=== PATIENT | female | born 1955 | race Asian ===

== ENCOUNTER 2016-10-17 10:25 | Emergency (ER) | payer OTHER ==
[~2016-10-17] VITALS: Ht 160 cm; Wt 60.0 kg
[2016-10-17 10:29] VITALS: Ht 160 cm; Wt 60.0 kg
--- NOTE | 2016-10-17 13:15 | ERD ---
ER Documentation Chief Complaint Date/Time DATE: 10/17/16 TIME: 13:07 Chief Complaint BUMPED HEAD ON DOOR HANDLE WANTS TO GET CHECKED DENIES N/V KO BLURRY VISION HPI This is a 60-year-old female presenting to the emergency department after head injury that occurred yesterday. Patient states she was walking fast and hit her head on the edge of her bathroom door. Patient states she developed a small bump to her left forehead that has improved since yesterday. Patient now has bruising to left eye. No headache. Patient has some pain to left forehead at area of ecchymosis. No nausea or vomiting. No visual changes. No blurry vision or loss of vision. No loss of consciousness. No change in mood or behavior. Denies weakness or fatigue. No increased lethargy. No obvious deformity. No hematoma. No slurred speech or facial droop. ROS All systems reviewed and are negative except as per history of present illness. Medications Home Meds Reported Medications [None] No Conflict Check 01/09/10 Allergies Allergies: Coded Allergies: No Known Allergies (Verified Allergy, Mild, 07/14/10) PMhx/Soc History of Surgery: No Anesthesia Reaction: No Hx Neurological Disorder: No Hx Respiratory Disorders: No Hx Cardiac Disorders: No Hx Psychiatric Problems: No Hx Miscellaneous Medical Probl: No Hx Alcohol Use: No Hx Substance Use: No Hx Tobacco Use: No Smoking Status: Never smoker Physical Exam Vitals Vital Signs Date Time Temp Pulse Resp B/P Pulse Ox O2 Delivery O2 Flow Rate FiO2 10/17/16 10:29 98.1 74 18 151/79 96 Physical Exam Const: No acute distress, alert, smiling during exam Head: Atraumatic Eyes: Normal Conjunctiva, PERRL, ecchymosis to left upper lid with mild swelling. ENT: Normal External Ears, Nose and Mouth. Neck: Full range of motion..~ No meningismus. Resp: Clear to auscultation bilaterally Cardio: Regular rate and rhythm, no murmurs Abd: Soft, non tender, non distended. Normal bowel sounds Skin: No petechiae or rashes Back: No midline or flank tenderness Ext: No cyanosis, or edema Neur: Awake and alert cranial nerves intact 2 through 12. Strength equal bilaterally to upper extremities.. Walking with steady gait. Psych: Normal Mood and Affect Procedures/MDM ED COURSE: The patient was stable throughout ED course. I kept the patient and/or family informed of laboratory and diagnostic imaging results throughout the ED course. MDM: This is a 60-year-old female presenting to emergency department for head injury that occurred yesterday. No loss of consciousness, change in vision, loss of vision or blurry vision. No change in mood or behavior. No obvious skull fracture or deformity. Patient has left eye ecchymosis to left upper lid with mild lid swelling. No neurologic deficits. No weakness or fatigue. No increased lethargy. Walking with steady gait. No slurred speech or facial droop. Patient appears calm and comfortable and stable for discharge home. Low suspicion for intracranial hemorrhage, subdural hematoma, CVA , retinal detachment or other emergent conditions. Patient is appropriate for outpatient management and encouraged to follow-up with primary care provider in the next 24-48 hours. Encouraged close monitoring of neurologic status and to return to ED for any weakness , slurred speech, facial droop ,change in vision, mood or behavior, level of consciousness or any new or worsening symptoms. Patient and patient's spouse verbalize understanding. All questions answered at discharge. Departure Diagnosis: Primary Impression: Head injury Encounter type: initial encounter Qualified Code: S09.90XA - Head injury, initial encounter Condition: Stable Patient Instructions: HEAD INJURY with Wake-Up (Adult) Referrals: [facility] YOU HAVE RECEIVED A MEDICAL SCREENING EXAM AND THE RESULTS INDICATE THAT YOU DO NOT HAVE A CONDITION THAT REQUIRES URGENT TREATMENT IN THE EMERGENCY DEPARTMENT. FURTHER EVALUATION AND TREATMENT OF YOUR CONDITION CAN WAIT UNTIL YOU ARE SEEN IN YOUR DOCTORS OFFICE WITHIN THE NEXT 1-2 DAYS. IT IS YOUR RESPONSIBILITY TO MAKE AN APPOINTMENT FOR FOLOW-UP CARE. IF YOU HAVE A PRIMARY DOCTOR --you should call your primary doctor and schedule an appointment IF YOU DO NOT HAVE A PRIMARY DOCTOR YOU CAN CALL OUR PHYSICIAN REFERRAL HOTLINE AT IF YOU CAN NOT AFFORD TO SEE A PHYSICIAN YOU CAN CHOSE FROM THE FOLLOWING [facility] [address] [facility] [address] [facility] [address] [facility] [address] [facility] [facility] [address] [facility] [facility] [address] [facility]. [facility] YOU HAVE RECEIVED A MEDICAL SCREENING EXAM AND THE RESULTS INDICATE THAT YOU DO NOT HAVE A CONDITION THAT REQUIRES URGENT TREATMENT IN THE EMERGENCY DEPARTMENT. FURTHER EVALUATION AND TREATMENT OF YOUR CONDITION CAN WAIT UNTIL YOU ARE SEEN IN YOUR DOCTORS OFFICE WITHIN THE NEXT 1-2 DAYS. IT IS YOUR RESPONSIBILITY TO MAKE AN APPOINTMENT FOR FOLOW-UP CARE. IF YOU HAVE A PRIMARY DOCTOR --you should call your primary doctor and schedule and appointment IF YOU DO NOT HAVE A PRIMARY DOCTOR YOU CAN CALL OUR PHYSICIAN REFERRAL HOTLINE AT . IF YOU CAN NOT AFFORD TO SEE A PHYSICIAN YOU CAN CHOSE FROM THE FOLLOWING [facility] INSTITUTIONS: [facility] [address] [place] [address] [facility] [address] [place], [place] [id number] [place] [address] [address] [place] [address] Additional Instructions: Call your primary care doctor TOMORROW for an appointment during the next 2-3 days.See the doctor sooner or return here if your condition worsens before your appointment time. Return to ED for any change in mood or behavior, loss of consciousness, visual changes, facial droop, weakness or any new or worsening symptoms. SHAKIR MOE NP Oct 17, 2016 13:14
== END 2016-10-17 13:43 | disposition home or self-care (01) ==
LOC: FTE 10:25
DX: S09.90XA Unspecified injury of head, initial encounter (principal); W22.8XXA Striking against or struck by other objects, initial encounter; Y92.9 Unspecified place or not applicable
CPT/HCPCS: 99283

== ENCOUNTER 2016-10-19 08:38 | Emergency (ER) | payer OTHER ==
[~2016-10-19] VITALS: Wt 60.0 kg
[2016-10-19] MEDS ORDERED: ONDANSETRON (ODT) 4 MG TAB ODT STA (10:16)
[2016-10-19] MEDS ORDERED: METO-448 PO (10:29)
[2016-10-19] MEDS ORDERED: MECLIZINE 12.5 MG TAB PO ONE (10:30)
[2016-10-19] MEDS ORDERED: METO25TA7 PO (10:31)
--- NOTE | 2016-10-19 10:40 | RADRPT ---
PROCEDURE: CT Brain without contrast. CLINICAL INDICATION: Trauma to left supraorbital area several days ago TECHNIQUE: A CT of the brain was performed on a [employer] 64-slice CT scanner utilizing axial imaging from the skull base through the vertex without IV contrast. Multiplanar reformatted images were made. Images were reviewed on a PACS workstation. The CTDIvol is 45.01 mGy and the DLP is 630 .2 mGycm. COMPARISON: None FINDINGS: There is no intracranial hemorrhage, mass effect, or midline shift. No extra-axial fluid collection is seen. The ventricles and sulci are normal in size and configuration. The density of the brain is normal, and the anthony white matter differentiation appears well-preserved. The visualized paranasal sinuses and osseous structures are grossly unremarkable. IMPRESSION: 1. No evidence of acute intracranial pathology. 2. Brain is normal in appearance for patient's age. RPTAT: AACC Physician Allyssa Date Time Electronically viewed and signed by Physician Allyssa on 10/19/2016 10:39 /
--- NOTE | 2016-10-19 11:02 | RADRPT ---
PROCEDURE: CT orbits CLINICAL INDICATION: Left supraorbital trauma. TECHNIQUE: Volumetric axially acquired images of the orbits obtained following the administration of intravenous contrast were reconstructed in the axial, coronal, and sagittal planes. One or more the following does reduction techniques were utilized: Automated exposure control, adjus tment of themA/ or kV according to patient's size, or use of iterative reconstruction technique. The exam CTDI = 45.01 mGy and the DLP = 630.2 mGy-cm. COMPARISON: No prior studies are available for comparison. FINDINGS: Mild left frontal scalp and periorbital soft tissue swelling and hematoma are noted without underlyi ng fracture. The globes are intact. The extra-ocular muscles and optic nerves are symmetric and normal in size. There is mild scattered mucosal thickening mainly in maxillary sinuses with probable mucous retentio n cyst in the right maxillary sinus. IMPRESSION: 1. Mild left frontal scalp and periorbital soft tissue swelling and hematoma without underlying fra cture. 2. Mild scattered bilateral maxillary sinus disease. RPTAT: HFN .Ang Rogel MD, Date Time Electronically viewed and signed by .Ang Rogel MD, MD on 10/19/2016 11:01 .N/
[2016-10-19] MEDS ORDERED: MECL-77 PO (11:21)
[2016-10-19] MEDS ORDERED: HYDR-906 PO (11:21)
--- NOTE | 2016-10-19 11:26 | ERD ---
ER Documentation Chief Complaint Date/Time DATE: 10/19/16 TIME: 11:22 Chief Complaint dizziness and headache after head injury 4 days ago. no neuro def HPI This is a 60-year-old female who sustained a head injury to her left supraorbital region 3 days ago. She said a door hit her in the face and she subsequently developed some swelling/hematoma above the left eye. She states she has had a headache there for the past 3 days as mild to moderate. No nausea or vomiting but she has had some episodes of vertigo. No visual change no focal neurological complaints no speech change. No subconjunctival hemorrhage. No ringing in the ears. No loss of hearing. No neck pain. Headache is described as dull and constant ROS All systems reviewed and are negative except as per history of present illness. Medications Home Meds Active Scripts Hydrocodone/Acetaminophen ([place] 5-325 Tablet) 1 Each Tablet, 1 EACH PO Q4 for PAIN, #20 TAB Prov:LEADELSOOS,APOSTOLOS A. DO 10/19/16 Meclizine Hcl* (Meclizine Hcl*) 25 Mg Tablet, 25 MG PO Q8H Y for DIZZINESS, #20 TAB Prov:LEKKOS,APOSTOLOS A. DO 10/19/16 Reported Medications Metoprolol Succinate* (Toprol XL*) 25 Mg Tab.sr.24h, 25 MG PO DAILY, #30 TAB 10/19/16 Discontinued Reported Medications Metoprolol Tartrate* (Lopressor*) 25 Mg Tab, 25 MG PO DAILY, #60 TAB 10/19/16 [None] No Conflict Check 01/09/10 Allergies Allergies: Coded Allergies: No Known Allergies (Verified Allergy, Mild, 07/14/10) PMhx/Soc History of Surgery: Yes (CSECTION X1) Anesthesia Reaction: No Hx Neurological Disorder: No Hx Respiratory Disorders: No Hx Cardiac Disorders: Yes (HTN) Hx Psychiatric Problems: No Hx Miscellaneous Medical Probl: No Hx Alcohol Use: No Hx Substance Use: No Hx Tobacco Use: No Smoking Status: Never smoker FmHx Family History: No coronary disease Physical Exam Vitals Vital Signs Date Time Temp Pulse Resp B/P Pulse Ox O2 Delivery O2 Flow Rate FiO2 10/19/16 09:50 98.1 81 20 132/88 98 Room Air 10/19/16 08:45 97.5 77 20 150/82 98 Physical Exam Const: Well-developed, well-nourished Head: Atraumatic, normocephalic Eyes: Normal Conjunctiva, PERRLA, EOMI, normal sclera, no nystagmus ecchymosis to the left upper eyelid and medial portion around the medial canthus no entrapment of extraocular muscles ENT: Normal External Ears, Nose and Mouth, moist mucus membranes. Neck: Full range of motion. No meningismus, no lymphadenopathy. Resp: Clear to auscultation bilaterally, no wheezing, rhonchi, rales Cardio: Regular rate and rhythm, no murmurs, S1 S2 present Abd: Soft, non tender x 4, non distended. Normal bowel sounds, no guarding or rebound, no pulsitile abdominal masses or bruits Skin: No petechiae or rashes, no ecchymosis , no maculopapular rash Back: No midline or flank tenderness Ext: No cyanosis, or edema, FROM x 4, normal inspection, neurovascularly intact x 4 Neur: Awake and alert, STR 5/5 x 4, sensation intact x 4, no focal findings, cerebellum intact Psych: Normal Mood and Affect Results 24 hrs Current Medications Medications (Trade) Dose Ordered Sig/Shailesh Route PRN Reason Start Time Stop Time Status Last Admin Dose Admin Ondansetron HCl (Zofran Odt) 4 mg ONCE STAT ODT 10/19/16 10:16 10/19/16 10:23 DC 10/19/16 10:42 Meclizine HCl (Antivert) 25 mg ONCE ONCE PO 10/19/16 10:30 10/19/16 10:31 DC 10/19/16 10:42 Procedures/MDM PROCEDURE: CT Brain without contrast. CLINICAL INDICATION: Trauma to left supraorbital area several days ago TECHNIQUE: A CT of the brain was performed on a [employer] 64-slice CT scanner utilizing axial imaging from the skull base through the vertex without IV contrast. Multiplanar reformatted images were made. Images were reviewed on a PACS workstation. The CTDIvol is 45.01 mGy and the DLP is 630.2 mGycm. COMPARISON: None FINDINGS: There is no intracranial hemorrhage, mass effect, or midline shift. No extra- axial fluid collection is seen. The ventricles and sulci are normal in size and configuration. The density of the brain is normal, and the anthony white matter differentiation appears well-preserved. The visualized paranasal sinuses and osseous structures are grossly unremarkable. IMPRESSION: 1. No evidence of acute intracranial pathology. 2. Brain is normal in appearance for patient's age. RPTAT: AAC Physician Allyssa Date Time Electronically viewed and signed by Lloyd Alanis Physician on 10/19/2016 10: 39 JH/ CC: CYNTHIA SILVERMAN DO PROCEDURE: CT orbits CLINICAL INDICATION: Left supraorbital trauma. TECHNIQUE: Volumetric axially acquired images of the orbits obtained following the administration of intravenous contrast were reconstructed in the axial, coronal, and sagittal planes. One or more the following does reduction techniques were utilized: Automated exposure control, adjustment of themA/ or kV according to patient's size, or use of iterative reconstruction technique. The exam CTDI = 45.01 mGy and the DLP = 630.2 mGy-cm. COMPARISON: No prior studies are available for comparison. FINDINGS: Mild left frontal scalp and periorbital soft tissue swelling and hematoma are noted without underlying fracture. The globes are intact. The extra-ocular muscles and optic nerves are symmetric and normal in size. There is mild scattered mucosal thickening mainly in maxillary sinuses with probable mucous retention cyst in the right maxillary sinus. IMPRESSION: 1. Mild left frontal scalp and periorbital soft tissue swelling and hematoma without underlying fracture. 2. Mild scattered bilateral maxillary sinus disease. RPTAT: HFN .Ang Rogel MD, MD Date Time Electronically viewed and signed by .Ang Rogel MD, MD on 10/19/2016 11: 01 .N/ CC: CYNTHIA SILVERMAN DO No evidence of orbital fracture or head injury. Patient has concussive symptoms. Discussed with patient to rest and to ice her periorbital region Copies of imaging given to patient Departure Diagnosis: Primary Impression: Concussion Encounter type: initial encounter Loss of consciousness presence/duration: without LOC Qualified Code: S06.0X0A - Concussion, without loss of consciousness, initial encounter Condition: Stable Patient Instructions: Concussion CYNTHIA SILVERMAN DO Oct 19, 2016 11:26
[2016-10-19 11:31] VITALS: BP 114/54; PULSE 72; RESP 18; TEMP 98
== END 2016-10-19 11:31 | disposition home or self-care (01) ==
LOC: E/R 08:38
DX: S06.0X0A Concussion without loss of consciousness, initial encounter (principal); R40.2142 Coma scale, eyes open, spontaneous, at arrival to emergency department; R40.2252 Coma scale, best verbal response, oriented, at arrival to emergency department; R40.2362 Coma scale, best motor response, obeys commands, at arrival to emergency department; I10 Essential (primary) hypertension; W22.09XA Striking against other stationary object, initial encounter; Y92.9 Unspecified place or not applicable
CPT/HCPCS: 70450; 70480; 99285

== ENCOUNTER 2016-12-16 16:52 | Emergency (ER) | payer OTHER ==
[~2016-12-16] VITALS: Wt 58.5 kg
[~2016-12-16 16:52] MED LIST: HYDR-906 PO; MECL-77 PO; METO25TA7 PO
[2016-12-16] MEDS ORDERED: morphine 4 MG/ML VIAL IV STA (17:59)
[2016-12-16] MEDS ORDERED: ONDANSETRON 4 MG INJ IV STA (17:59)
[2016-12-16] MEDS ORDERED: SOD CHLORIDE 0.9% 1,000 ML IV STA (17:59)
--- NOTE | 2016-12-16 18:33 | RADRPT ---
PROCEDURE: CT abdomen and pelvis without IV contrast. CLINICAL INDICATION: Abdominal pain TECHNIQUE: CT scan of the abdomen and pelvis without contrast was performed on the [employer]O5 volumetric [address] scanner. The patient was scanned without intravenous contrast. Coronal and sagittal refo rmatted images were obtained from the axial source images. The CTDI vol is 6.81 mGy and the DLP is 3 21.59 mGy-cm. COMPARISON: None. FINDINGS: CT abdomen: A small right pleural effusion is seen. Focal consolidation in the right lower lobe is seen. The he art size is not enlarged and is without pericardial thickening or effusion. The liver is normal in size and density and is without focal mass or intrahepatic biliary dilatation . The spleen is normal in size and homogeneous in density. The stomach is grossly unremarkable. T he pancreas as visualized is normal. The gallbladder and biliary tree are unremarkable and there is no evidence for common bile duct dilatation. The adrenal glands are symmetric and normal. The kid neys are symmetrically unremarkable as well. No renal calculus or obstructive uropathy or mass lesi on is seen. The aorta is of normal in caliber. There is no retroperitoneal lymphadenopathy. The andre hepatis region is clear. The small and large bowel and mesentery, as visualized, are unremarkable. The norm al appendix is identified. CT pelvis: A calcified structure seen projecting from the left posterior lateral uterus measuring approximately 2.5 cm in size. The remainder of the pelvic organs are normal. The pelvic sidewalls and inguinal regions are clear. No pelvic mass, lymphadenopathy, or free fluid is seen. No acute inflammation i s seen. The urinary bladder is within normal limits. The surrounding osseous structures are unremarkable. No osteolytic or osteoblastic lesion is detect ed. IMPRESSION: 1. Small right pleural effusion with focal consolidation in the right lower lobe. Continued chest x-ray follow-up to resolution is suggested. 2. Calcified left posterior lateral uterine structure which may represent a leiomyoma. Consider ul trasound correlation as clinically warranted. RPTAT: HPNM Physician Christelle Date Time Electronically viewed and signed by Fredi Monzon Physician on 12/16/2016 18:32 /
--- NOTE | 2016-12-16 18:40 | RADRPT ---
PROCEDURE: Right upper quadrant ultrasound CLINICAL INDICATION: Abdominal pain TECHNIQUE: Multiple real-time images were acquired of the patient's abdomen and right retroperiton eum utilizing a high resolution transducer. COMPARISON: CT dated 12/16/2016 FINDINGS: The liver is normal in echogenicity and measures 15.9 cm. No focal hepatic masses are seen. The ga llbladder is physiologically distended. There is no evidence of gallstones, gallbladder wall thicke uma, or pericholecystic fluid. The intra and extrahepatic bile ducts are normal in caliber. The c ommon bile duct measures 2.9 mm. Midline images demonstrate the pancreas to be normal in echogenicity without obvious inflammatory ch emani. Pancreatic tail is suboptimally seen. Survey views of the right kidney demonstrate minimal fullness of the right collecting system which i s likely physiologic. No obstructing renal calculi are seen. The right kidney measures 8.7 cm. IMPRESSION: 1. No evidence of cholelithiasis or acute cholecystitis. 2. Minimal fullness of right renal collecting system is likely physiologic. RPTAT: HH .Miki Maher MD, Date Time Electronically viewed and signed by .Miki Maher MD, on 12/16/2016 18:39 .W/
[2016-12-16 18:56] LABS: ADD SCAN DIFF NO
[2016-12-16 18:57] LABS: BASOPHILS % 0.2 % (0.0-2.0); EOSINOPHILS # 0.1 10^3/ul (0.0-0.5); EOSINOPHILS % 0.7 % (0.0-7.0); HEMATOCRIT 40.4 % (37.0-47.0); HEMOGLOBIN 13.4 g/dl (12.0-16.0); LYMPHOCYTES # 1.1 10^3/ul (0.8-2.9); LYMPHOCYTES % 11.6 % (15.0-51.0); MEAN CORPUSCULAR HEMOGLOBIN 29.8 pg (29.0-33.0); MEAN CORPUSCULAR HGB CONC 33.2 g/dl (32.0-37.0); MEAN PLATELET VOLUME 9.3 fl (7.4-10.4); MONOCYTE # 0.4 10^3/ul (0.3-0.9); MONOCYTES % 4.5 % (0.0-11.0); NEUTROPHIL # 7.9 10^3/ul (1.6-7.5); NEUTROPHILS % 82.5 % (39.0-77.0); PLATELET COUNT 217 10^3/UL (140-415); RED BLOOD COUNT 4.49 10^6/ul (4.20-5.40); WHITE BLOOD COUNT 9.6 10^3/ul (4.8-10.8)
[2016-12-16 19:05] LABS: ADD UMIC YES; URINE BILIRUBIN (Dip) NEGATIVE (NEGATIVE); URINE BLOOD (Dip) TRACE (NEGATIVE); URINE COLOR LT. YELLOW (YELLOW); URINE GLUCOSE (Dip) NEGATIVE (NEGATIVE); URINE KETONES (Dip) NEGATIVE (NEGATIVE); URINE LEUKOCYTE ESTERASE (Dip) TRACE (NEGATIVE); URINE NITRITE (Dip) NEGATIVE (NEGATIVE); URINE TOTAL PROTEIN (Dip) NEGATIVE (NEGATIVE); URINE UROBILINOGEN (Dip) 0.2 E.U./dL (0.1-1.0)
[2016-12-16 19:07] LABS: ALBUMIN 4.3 g/dl (3.3-4.9); CHLORIDE 99 mmol/L (97-110)
[2016-12-16 19:08] LABS: POTASSIUM 3.5 mmol/L (3.5-5.1); SODIUM 138 mmol/L (135-144)
[2016-12-16 19:10] LABS: ALBUMIN/GLOBULIN RATIO 1.53; ANION GAP 16 (8-16); ASPARTATE AMINO TRANSFERASE 21 IU/L (15-46); BILIRUBIN,INDIRECT 0.8 mg/dl (0-1.1); BILIRUBIN,TOTAL 0.8 mg/dl (0.2-1.3); BLOOD UREA NITROGEN 10 mg/dl (7-20); CARBON DIOXIDE 27 mmol/L (21-31); CREATININE 0.63 mg/dl (0.44-1.00); TOTAL PROTEIN 7.1 g/dl (6.1-8.1)
[2016-12-16 19:11] LABS: ALANINE AMINOTRANSFERASE 26 IU/L (13-69); ALKALINE PHOSPHATASE 53 IU/L (42-121); CALCIUM 8.6 mg/dl (8.4-10.2); GLUCOSE 99 mg/dl (70-220)
[2016-12-16 19:25] LABS: BACTERIA,URINE FEW; URINE RBCS 0-2 /HPF (0)
[2016-12-16 19:32] LABS: TROPONIN-I < 0.012 ng/ml (0.00-0.12)
[2016-12-16] MEDS ORDERED: HYDR-902 PO (19:41)
[2016-12-16] MEDS ORDERED: ONDA4TAB14 PO (19:41)
[2016-12-16] MEDS ORDERED: AZIT250T94 PO (19:41)
--- NOTE | 2016-12-16 19:44 | ERD ---
ER Documentation Chief Complaint Date/Time DATE: 12/16/16 TIME: 19:44 Chief Complaint ABD PAIN SINCE THIS AM WITH DIARRHEA, HEADACHE, N/V HPI Patient is a 61-year-old female with hypertension who presents with abdominal pain and vomiting. The symptoms are diffuse. She describes it as a cramping. The symptoms started at 3 AM. The pain comes and goes. There is been no treatment as of yet. She has never had this before. Upon review of old medical records this is the patient's fourth visit to the ER since 2009. Her primary doctor is Dr. Eddie Acosta. ROS All systems reviewed and are negative except as per history of present illness. Medications Home Meds Active Scripts Azithromycin* (Zithromax*) 250 Mg Tablet, 250 MG PO .ZPACK DIRECTED, #6 TAB TAKE 500 MG (2 TABS) THE FIRST DAY THEN 250 MG (1 TAB) DAYS 2-5 Prov:FELI ROACH MD 12/16/16 Ondansetron (Ondansetron Odt) 4 Mg Tab.rapdis, 4 MG PO Q6H Y for NAUSEA AND/OR VOMITING, #30 TAB Prov:FELI ROACH MD 12/16/16 Hydrocodone/Acetaminophen ([place] 10-325 Tablet) 1 Each Tablet, 1 TAB PO Q6H Y for PAIN, #7 TAB Prov:FELI ROACH MD 12/16/16 Hydrocodone/Acetaminophen ([place] 5-325 Tablet) 1 Each Tablet, 1 EACH PO Q4 for PAIN, #20 TAB Prov:CYNTHIA SILVERMAN DO 10/19/16 Meclizine Hcl* (Meclizine Hcl*) 25 Mg Tablet, 25 MG PO Q8H Y for DIZZINESS, #20 TAB Prov:CYNTHIA SILVERMAN DO 10/19/16 Reported Medications Metoprolol Succinate* (Toprol XL*) 25 Mg Tab.sr.24h, 25 MG PO DAILY, #30 TAB 10/19/16 Allergies Allergies: Coded Allergies: No Known Allergies (Verified Allergy, Mild, 07/14/10) PMhx/Soc History of Surgery: Yes (CSECTION X1) Anesthesia Reaction: No Hx Neurological Disorder: No Hx Respiratory Disorders: No Hx Cardiac Disorders: Yes (HTN) Hx Psychiatric Problems: No Hx Miscellaneous Medical Probl: No Hx Alcohol Use: No Hx Substance Use: No Hx Tobacco Use: No Smoking Status: Never smoker FmHx Family History: diabetes Physical Exam Vitals Vital Signs Date Time Temp Pulse Resp B/P Pulse Ox O2 Delivery O2 Flow Rate FiO2 12/16/16 18:55 90 14 135/85 100 Room Air 12/16/16 16:58 99.8 110 131/87 99 Physical Exam Const: Mild distress Head: Atraumatic Eyes: Normal Conjunctiva ENT: Normal External Ears, Nose and Mouth. Neck: Full range of motion..~ No meningismus. Resp: Clear to auscultation bilaterally Cardio: Regular rate and rhythm, no murmurs Abd: Soft, diffuse tenderness to palpation without rebound or guarding Skin: No petechiae or rashes Back: No midline or flank tenderness Ext: No cyanosis, or edema Neur: Awake and alert Psych: Normal Mood and Affect Result Diagram: 12/16/16180912/16/161809 Results 24 hrs Laboratory Tests Test 12/16/16 18:10 12/16/16 18:50 White Blood Count 9.610^3/ul Red Blood Count 4.4910^6/ul Hemoglobin 13.4g/dl Hematocrit 40.4% Mean Corpuscular Volume 90.0fl Mean Corpuscular Hemoglobin 29.8pg Mean Corpuscular Hemoglobin Concent 33.2g/dl Red Cell Distribution Width 12.0% Platelet Count 31754^3/UL Mean Platelet Volume 9.3fl Neutrophils % 82.5% Lymphocytes % 11.6% Monocytes % 4.5% Eosinophils % 0.7% Basophils % 0.2% Nucleated Red Blood Cells % 0.0/100WBC Neutrophils # 7.910^3/ul Lymphocytes # 1.110^3/ul Monocytes # 0.410^3/ul Eosinophils # 0.110^3/ul Basophils # 0.010^3/ul Nucleated Red Blood Cells # 0.010^3/ul Sodium Level 138mmol/L Potassium Level 3.5mmol/L Chloride Level 99mmol/L Carbon Dioxide Level 27mmol/L Anion Gap 16 Blood Urea Nitrogen 10mg/dl Creatinine 0.63mg/dl Glucose Level 99mg/dl Calcium Level 8.6mg/dl Total Bilirubin 0.8mg/dl Direct Bilirubin 0.00mg/dl Indirect Bilirubin 0.8mg/dl Aspartate Amino Transf (AST/SGOT) 21IU/L Alanine Aminotransferase (ALT/SGPT) 26IU/L Alkaline Phosphatase 53IU/L Troponin I < 0.012ng/ml Total Protein 7.1g/dl Albumin 4.3g/dl Globulin 2.80g/dl Albumin/Globulin Ratio 1.53 Lipase 43U/L Urine Color LT. YELLOW Urine Clarity CLEAR Urine pH 6.0 Urine Specific [place] <=1.005 Urine Ketones NEGATIVE Urine Nitrite NEGATIVE Urine Bilirubin NEGATIVE Urine Urobilinogen 0.2 E.U./dL Urine Leukocyte Esterase TRACE Urine Microscopic RBC 0-2/HPF Urine Microscopic WBC 0-2/HPF Urine Epithelial Cells FEW Urine Bacteria FEW Urine Hemoglobin TRACE Urine Glucose NEGATIVE% Urine Total Protein NEGATIVE Current Medications Medications (Trade) Dose Ordered Sig/Shailesh Route PRN Reason Start Time Stop Time Status Last Admin Dose Admin Sodium Chloride (NS) 1,000 ml @ 1,000 mls/hr Q1H STAT IV 12/16/16 17:59 12/16/16 18:58 DC 12/16/16 19:10 Morphine Sulfate (morphine) 4 mg ONCE STAT IV 12/16/16 17:59 12/16/16 18:00 DC 12/16/16 19:08 Ondansetron HCl (Zofran Inj) 4 mg ONCE STAT IV 12/16/16 17:59 12/16/16 18:00 DC 12/16/16 19:08 Procedures/MDM EKG read by me: Rate/Rhythm: Regular rate and rhythm at a rate of 87 Intervals: Normal Impression: No evidence of ischemia or arrhythmia Ultrasound of the gallbladder shows no cholecystitis per radiology. PROCEDURE: CT abdomen and pelvis without IV contrast. CLINICAL INDICATION: Abdominal pain TECHNIQUE: CT scan of the abdomen and pelvis without contrast was performed on the [employer] volumetric [address] scanner. The patient was scanned without intravenous contrast. Coronal and sagittal reformatted images were obtained from the axial source images. The CTDI vol is 6.81 mGy and the DLP is 321.59 mGy -cm. COMPARISON: None. FINDINGS: CT abdomen: A small right pleural effusion is seen. Focal consolidation in the right lower lobe is seen. The heart size is not enlarged and is without pericardial thickening or effusion. The liver is normal in size and density and is without focal mass or intrahepatic biliary dilatation. The spleen is normal in size and homogeneous in density. The stomach is grossly unremarkable. The pancreas as visualized is normal. The gallbladder and biliary tree are unremarkable and there is no evidence for common bile duct dilatation. The adrenal glands are symmetric and normal. The kidneys are symmetrically unremarkable as well. No renal calculus or obstructive uropathy or mass lesion is seen. The aorta is of normal in caliber. There is no retroperitoneal lymphadenopathy. The andre hepatis region is clear. The small and large bowel and mesentery, as visualized, are unremarkable. The normal appendix is identified. CT pelvis: A calcified structure seen projecting from the left posterior lateral uterus measuring approximately 2.5 cm in size. The remainder of the pelvic organs are normal. The pelvic sidewalls and inguinal regions are clear. No pelvic mass, lymphadenopathy, or free fluid is seen. No acute inflammation is seen. The urinary bladder is within normal limits. The surrounding osseous structures are unremarkable. No osteolytic or osteoblastic lesion is detected. IMPRESSION: 1. Small right pleural effusion with focal consolidation in the right lower lobe. Continued chest x-ray follow-up to resolution is suggested. 2. Calcified left posterior lateral uterine structure which may represent a leiomyoma. Consider ultrasound correlation as clinically warranted. RPTAT: HPNM Physician Christelle Date Time Electronically viewed and signed by Physician Christelle on 12/16/2016 18 :32 Patient is a 61-year-old female who presents with diffuse abdominal pain. She had a full workup including laboratory studies, ultrasound, and CT scan. The CT scan shows no obvious signs of bowel obstruction or appendicitis. It does show a right lower lobe pneumonia which I will treat with Zithromax. The patient had no appendicitis, cholecystitis, pancreatitis, or bowel obstruction. The patient is in no respiratory distress. I believe outpatient management is appropriate. I have given her copies of laboratory studies and imaging test results prior to discharge. She can follow-up with her primary doctor within 24 -48 hours for reevaluation. She will be given a prescription for Zithromax, [place], and Zofran. Departure Diagnosis: Primary Impression: Pneumonia Pneumonia type: due to unspecified organism Laterality: right Lung location : lower lobe of lung Qualified Code: J18.1 - Pneumonia of right lower lobe due to infectious organism Additional Impression: Abdominal pain Abdominal location: generalized Qualified Code: R10.84 - Generalized abdominal pain Condition: Fair Patient Instructions: Abdominal Pain, Pneumonia (Adult) Referrals: EDDIE ACOSTA (PCP) Additional Instructions: Call your primary care doctor TOMORROW for an appointment during the next 1-2 days.See the doctor sooner or return here if your condition worsens before your appointment time. FEIL ROACH MD Dec 16, 2016 19:44
[2016-12-16 20:00] VITALS: BP 130/79; PULSE 95; RESP 18; TEMP 99.1
== END 2016-12-16 20:00 | disposition home or self-care (01) ==
LOC: E/R 16:52
DX: J18.1 Lobar pneumonia, unspecified organism (principal); I10 Essential (primary) hypertension; R11.10 Vomiting, unspecified
CPT/HCPCS: 74176; 76705; 80053; 81001; 81003; 83690; 84484; 85025; 93005; J2270; J2405; J7030; 96374; 96375

== ENCOUNTER 2017-04-13 07:17 | Emergency (ER) | payer OTHER ==
[~2017-04-13] VITALS: Ht 149.9 cm; Wt 59.0 kg
[~2017-04-13 07:17] MED LIST changes: +AZIT250T94 PO; +HYDR-902 PO; +ONDA4TAB14 PO
[2017-04-13 07:21] VITALS: Ht 149.9 cm; Wt 59.0 kg
[2017-04-13] MEDS ORDERED: SULF1TAB31 PO (08:00)
[2017-04-13] MEDS ORDERED: CEPH-443 PO (08:00)
--- NOTE | 2017-04-13 08:13 | ERA ---
ER Documentation Chief Complaint Date/Time DATE: 04/13/17 TIME: 08:02 Chief Complaint RT EYE PAIN AND REDNESS WITH DISCHARGE X 1 DAY HPI This is a 61-year-old female with a chief complaint of right eye redness and swelling 1 day. Patient also describes clear discharge from the affected eye. Denies medical conditions including diabetes. States that the eye is mildly pruritic. Patient denies eye pain, change in vision, photophobia, changes in hearing, fever, headache, foreign body sensation, or difficulty breathing. Patient has no other complaints and describes no other associated manifestations. Vaccination status up-to-date. No recent travel. Nursing notes have been reviewed and are consistent with history given. ROS All systems reviewed and are negative except as per history of present illness. Medications Home Meds Active Scripts Cephalexin* (Keflex*) 500 Mg Capsule, 500 MG PO QID for 5 Days, CAP Prov:LEONARDA BURDICK PA-C 04/13/17 Sulfamethoxazole/Trimethoprim* (Bactrim Ds* Tablet) 1 Each Tablet, 1 TAB PO BID , #14 TAB Prov:LEONARDA BURDICK PA-C 04/13/17 Azithromycin* (Zithromax*) 250 Mg Tablet, 250 MG PO .ZPACK DIRECTED, #6 TAB TAKE 500 MG (2 TABS) THE FIRST DAY THEN 250 MG (1 TAB) DAYS 2-5 Prov:FELI ROACH MD 12/16/16 Ondansetron (Ondansetron Odt) 4 Mg Tab.rapdis, 4 MG PO Q6H Y for NAUSEA AND/OR VOMITING, #30 TAB Prov:FELI ROACH MD 12/16/16 Hydrocodone/Acetaminophen ([place] 10-325 Tablet) 1 Each Tablet, 1 TAB PO Q6H Y for PAIN, #7 TAB Prov:FELI ROACH MD 12/16/16 Hydrocodone/Acetaminophen ([place] 5-325 Tablet) 1 Each Tablet, 1 EACH PO Q4 for PAIN, #20 TAB Prov:CYNTHIA SILVERMAN DO 10/19/16 Meclizine Hcl* (Meclizine Hcl*) 25 Mg Tablet, 25 MG PO Q8H Y for DIZZINESS, #20 TAB Prov:CYNTHIA SILVERMAN DO 10/19/16 Reported Medications Metoprolol Succinate* (Toprol XL*) 25 Mg Tab.sr.24h, 25 MG PO DAILY, #30 TAB 10/19/16 Allergies Allergies: Coded Allergies: No Known Allergies (Verified Allergy, Mild, 07/14/10) PMhx/Soc History of Surgery: Yes (CSECTION X1) Anesthesia Reaction: No Hx Neurological Disorder: No Hx Respiratory Disorders: No Hx Cardiac Disorders: Yes (HTN) Hx Psychiatric Problems: No Hx Miscellaneous Medical Probl: No Hx Alcohol Use: No Hx Substance Use: No Hx Tobacco Use: No Smoking Status: Never smoker Physical Exam Vitals Vital Signs Date Time Temp Pulse Resp B/P Pulse Ox O2 Delivery O2 Flow Rate FiO2 04/13/17 07:21 97.3 87 19 163/92 100 Physical Exam Const: Healthy-appearing. Well-nourished. Well-developed. No acute distress. Eyes: Clear watery discharge visualized from right eye. No tenderness to palpation of the periorbital area. EOMI and LIBBY bilaterally. No pain with extraocular movements. No injection noted. Neur: Awake, alert and oriented x3. Neurovascularly intact bilaterally. Psych: Normal Mood and Affect. Head: Normocephalic, Atraumatic. Ears: Normal External Ears, EACs clear, TM normal bilaterally without erythema. Nose: Normal nose without discharge, septal deviation, or sinus tenderness. Oral: No oral edema visualized. Mucous membranes moist and pink. Neck: No cervical lymphadenopathy, masses or goiter palpated. Trachea midline. Supple ~ No meningismus. Pulm: Good air movement in upper and lower respiratory tracts. No dyspnea, stridor, tripoding or drooling. Clear to auscultation bilaterally. Cardio: Regular rate and rhythm; No murmurs, gallops or rubs auscultated. No JVD grossly observed. Radial and posterior tibial pulses 2+ bilaterally. No cyanosis. Capillary refill less than 2 seconds. Abd: Soft, non tender, non distended. No guarding, masses. Normal bowel sounds. No McBurney's point tenderness. MS: Normal motor strength, normal tone with gross examination. Skin: No petechiae or rashes. No ulcer, induration, jaundice. Good turgor. Back: No midline, flank or CVA tenderness. Ext: No cyanosis, edema or palpable cord. Normal movement of all extremities grossly observed. Procedures/MDM Patient is being worked up and evaluated for a mildly pruritic, non-painful, acute red right eye with periorbital swelling as described in the history and physical exam. My current differential includes, but is not limited to, the following: conjunctivitis, uveitis, keratitis, scleritis, dacryocystitis, corneal foreign body, corneal ulcer, etc. The current most likely diagnosis is superficial cellulitis of the periorbital area. Treatment will thus include over -the-counter acetaminophen for discomfort and systemic antibiotics for infection. Visual acuity was measured after the procedure and remained unchanged. At this time I have very little suspicion for orbital cellulitis, acute glaucoma, corneal ulcer, keratitis, uveitis, or hemorrhage. I have spoke with the patient regarding their condition and future management. They have verbally responded that they understand their status and treatment plan. The patients vitals are stable, and their current condition is appropriate for discharge. The patient will be given discharge instructions with return precautions. Departure Diagnosis: Primary Impression: Cellulitis Qualified Code: L03.211 - Cellulitis of face Additional Impressions: Periorbital cellulitis of right eye Eye problem Condition: Stable Patient Instructions: Melinda-Orbital Cellulitis Additional Instructions: Follow up with your PCP within the next 1-3 days for a more thorough evaluation and a possible referral to a specialist. Return the the emergency department immediately if symptoms worsen or change. If you have any questions regarding medications, ask your pharmacist or us before you leave. If any adverse reactions occur while taking your medications, discontinue the treatment and return to the emergency department immediately. Take your medications as directed, and complete the entire course of treatment. LEONARDA BURDICK PA-C Apr 13, 2017 08:13
== END 2017-04-13 08:11 | disposition home or self-care (01) ==
LOC: FTE 07:17
DX: L03.211 Cellulitis of face (principal); L03.213 Periorbital cellulitis; I10 Essential (primary) hypertension
CPT/HCPCS: 99284

== ENCOUNTER 2017-07-15 17:34 | Emergency (ER) | payer OTHER ==
[~2017-07-15] VITALS: Wt 70.0 kg
[~2017-07-15 17:34] MED LIST changes: +CEPH-443 PO; +METO-335 PO; -METO25TA7 PO; +SULF1TAB31 PO
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
[2017-07-15] MEDS ORDERED: KETOROLAC 15 MG INJ IM STA (19:26)
[2017-07-15] MEDS ORDERED: NAPROXEN 500 MG TAB PO ONE (19:30)
[2017-07-15] MEDS ORDERED: FAMOTIDINE 20 MG TAB PO ONE (19:30)
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
--- NOTE | 2017-07-15 20:35 | RADRPT ---
PROCEDURE: XR right rib series. CLINICAL INDICATION: Right rib pain. TECHNIQUE: Two views of the right rib cage are available for review COMPARISON: None available FINDINGS: No acute fracture or dislocation is seen. No radiopaque foreign body is identified. The visualized portions of the underlying lung is clear. IMPRESSION: 1. No acute fracture of right rib cage x-ray series. RPTAT: HH .Ang Rogel MD, Date Time Electronically viewed and signed by .Ang Rogel MD, on 07/15/2017 20:34 .N/
[2017-07-15] MEDS ORDERED: NAPR-260 PO (21:13)
[2017-07-15] MEDS ORDERED: FAMO-96 PO (21:13)
== END 2017-07-15 22:07 | disposition home or self-care (01) ==
LOC: FTE 17:34
DX: M54.5 Low back pain (principal); I10 Essential (primary) hypertension
CPT/HCPCS: 71010; 71100; J1885

== ENCOUNTER 2018-07-07 06:45 | Emergency (ER) | END 2018-07-07 07:36 | disposition home or self-care (01) ==

== ENCOUNTER 2019-03-15 16:08 | Emergency (ER) | payer OTHER ==
[~2019-03-15] VITALS: Ht 152.4 cm; Wt 60.0 kg
[~2019-03-15 16:08] MED LIST changes: +AZIT250T PO; -AZIT250T94 PO; +BENZ-6 PO; +FAMO-96 PO; +HYDR-3980 PO; +HYDR-4011 PO; -HYDR-902 PO; -HYDR-906 PO; +NAPR-985 PO; +PROM5SYR2 PO
[2019-03-15 16:16] VITALS: Ht 152.4 cm; Wt 60.0 kg
[2019-03-15] MEDS ORDERED: KETOROLAC 15 MG INJ IV STA (16:46)
--- NOTE | 2019-03-15 18:05 | ERD ---
ER Documentation Chief Complaint Chief Complaint NON RAD CP ONST 1400 TODAY HPI 63-year-old female presenting with left upper chest pain that started today around 2 PM. She states that she has felt pain like this before and usually takes aspirin with relief of her symptoms. However today the pain was unprovoked and not resolved after taking aspirin. She describes it as an aching, "pinching" pain with no alleviating or exacerbating factors. Pain is nonexertional. No associated shortness of breath, diaphoresis, vomiting, [place], dizziness, focal weakness or numbness. ROS All systems reviewed and are negative except as per history of present illness. Medications Home Meds Active Scripts Promethazine HCl/Codeine (Prometh-Codein 6.25-10 mg/5 ml) 5 Ml Syrup, 5 ML PO DA CARL, #100 Prov:BALDEMAR CESPEDES PA-C 07/07/18 Benzonatate* (Tessalon Perle*) 100 Mg Capsule, 100 MG PO Q8H PRN for COUGH, #30 CAP Prov:BALDEMAR CESPEDES PA-C 07/07/18 Famotidine* (Pepcid*) 20 Mg Tablet, 20 MG PO BID for 10 Days, TAB Prov:LINA,SOCORRO 07/15/17 Naproxen* (Naprosyn*) 500 Mg Tablet, 500 MG PO BID PRN for PAIN AND/OR INFLAMMATION, #20 TAB Prov:LINA,SOCORRO 07/15/17 Cephalexin* (Keflex*) 500 Mg Capsule, 500 MG PO QID for 5 Days, CAP Prov:LEONARDA BURDICK PA-C 04/13/17 Sulfamethoxazole/Trimethoprim* (Bactrim Ds* Tablet) 1 Each Tablet, 1 TAB PO BID, #14 TAB Prov:LEONARDA BURDICK PA-C 04/13/17 Azithromycin* (Zithromax*) 250 Mg Tablet, 250 MG PO .CARLOTTA DIRECTED, #6 TAB TAKE 500 MG (2 TABS) THE FIRST DAY THEN 250 MG (1 TAB) DAYS 2-5 Prov:FELI ROACH MD 12/16/16 Ondansetron (Ondansetron Odt) 4 Mg Tab.rapdis, 4 MG PO Q6H PRN for NAUSEA AND/OR VOMITING, #30 TAB Prov:FELI ROACH MD 12/16/16 Hydrocodone/Acetaminophen (Lutcher 10-325 Tablet) 1 Each Tablet, 1 TAB PO Q6H PRN for PAIN, #7 TAB Prov:FELI ROACH MD 12/16/16 Hydrocodone/Acetaminophen ([place] 5-325 Tablet) 1 Each Tablet, 1 EACH PO Q4 for PAIN, #20 TAB Prov:MARCOSAPOSTOLOS A. DO 10/19/16 Meclizine Hcl* (Meclizine Hcl*) 25 Mg Tablet, 25 MG PO Q8H PRN for DIZZINESS, #20 TAB Prov:LEKKOS,APOSTOLOS A. DO 10/19/16 Reported Medications Metoprolol Succinate* (Toprol XL*) 25 Mg Tab.sr.24h, 25 MG PO DAILY, #30 TAB 10/19/16 Allergies Allergies: Coded Allergies: No Known Allergies (Verified Allergy, Mild, 07/14/10) PMhx/Soc History of Surgery: Yes (CSECTION X1) Anesthesia Reaction: No Hx Neurological Disorder: No Hx Respiratory Disorders: No Hx Cardiac Disorders: Yes (Tachycardia) Hx Psychiatric Problems: No Hx Miscellaneous Medical Probl: No Hx Alcohol Use: No Hx Substance Use: No Hx Tobacco Use: No Smoking Status: Never smoker FmHx Family History: No diabetes Physical Exam Vitals Vital Signs Date Temp Pulse Resp B/P (MAP) Pulse Ox O2 O2 Flow FiO2 Time Delivery Rate 03/15/19 98.7 81 18 133/82 97 Room Air 18:31 (99) 03/15/19 98.7 72 18 125/80 97 Room Air 16:45 (95) 03/15/19 98.9 83 18 155/67 99 16:16 (96) Physical Exam Const: No acute distress Head: Atraumatic Eyes: Normal Conjunctiva ENT: Normal External Ears, Nose and Mouth. Neck: Full range of motion. No meningismus. Resp: Right-sided bruit noted by auscultation of right flank/lower lung frost. Otherwise lungs Clear to auscultation bilaterally. Cardio: Regular rate and rhythm, no murmurs. 2+ distal pulses in all 4 extremities Abd: Soft, non tender, non distended. Normal bowel sounds. Skin: No petechiae or rashes Back: No midline or flank tenderness Ext: No cyanosis, or edema Neur: Awake and alert Psych: Normal Mood and Affect Result Diagram: 03/15/19 1657 03/15/19 1657 Results 24 hrs Laboratory Tests Test 03/15/19 16:57 White Blood Count 7.2 10^3/ul Red Blood Count 4.49 10^6/ul Hemoglobin 13.1 g/dl Hematocrit 39.6 % Mean Corpuscular Volume 88.2 fl Mean Corpuscular Hemoglobin 29.2 pg Mean Corpuscular Hemoglobin Concent 33.1 g/dl Red Cell Distribution Width 12.5 % Platelet Count 224 10^3/UL Mean Platelet Volume 9.0 fl Immature Granulocytes % 0.300 % Neutrophils % 52.9 % Lymphocytes % 35.8 % Monocytes % 7.4 % Eosinophils % 2.8 % Basophils % 0.8 % Nucleated Red Blood Cells % 0.0 /100WBC Immature Granulocytes # 0.020 10^3/ul Neutrophils # 3.8 10^3/ul Lymphocytes # 2.6 10^3/ul Monocytes # 0.5 10^3/ul Eosinophils # 0.2 10^3/ul Basophils # 0.1 10^3/ul Nucleated Red Blood Cells # 0.0 10^3/ul Sodium Level 143 mmol/L Potassium Level 4.3 mmol/L Chloride Level 106 mmol/L Carbon Dioxide Level 29 mmol/L Anion Gap 8 Blood Urea Nitrogen 16 mg/dl Creatinine 0.78 mg/dl Est Glomerular Filtrat Rate mL/min > 60 mL/min Glucose Level 93 mg/dl Calcium Level 9.3 mg/dl Troponin I < 0.012 ng/ml Current Medications Medications Dose Sig/Shailesh Start Time Status Last (Trade) Ordered Route PRN Stop Time Admin Dose Reason Admin Ketorolac 15 mg ONCE STAT 03/15/19 DC 03/15/19 Tromethamine IV 16:46 03/15/19 17:02 (Toradol) 16:47 Procedures/MDM EMERGENT LABS AND DIAGNOSTIC STUDIES: Lab Results above were reviewed and interpreted by me. CBC: no anemia or evidence of infection BMP: no e/o clinically significant electrolyte abnormality severe acidosis, song losis, renal failure, diabetic ketoacidosis Troponin within normal limits, not indicative of cardiac ischemia 12-lead EKG was interpreted by Romy Hernandez MD: Normal Sinus Rhythm with ventricular rate of 77 beats per minute Normal axis Normal intervals No acute ST or T wave changes suggestive of acute ischemia or STEMI. Radiology Results as interpreted by Radiology below were reviewed by Zonia Hernandez MD: Chest x-ray shows no acute abnormalities Initial Nursing notes reviewed. Previous Medical Records requested via the Electronic Health Record. EMERGENCY DEPARTMENT COURSE / MEDICAL DECISION MAKING: Patient is presenting with left-sided intermittent chest pain that has been going on for quite some time, worse today. She is afebrile with stable vitals. I have a very low suspicion for acute coronary syndrome, pulmonary embolism, aortic dissection. Doubt pericarditis. Basic work-up was done and was unremarkable. However I did discuss with the patient my findings of likely renal artery bruit noted on exam concerning for renal artery stenosis. This does not require emergent work-up at this time and is not related to her chest pain. However it will need further outpatient work-up. Patient understands the findings and the discharge plan. She is agreeable and will follow-up with her primary care doctor. With regard to her chest pain, the cause of this is unclear at this time but likely not serious. Return precautions were given. Follow-up with PCP was recommended within the next 1 week. Patient's blood pressure was elevated (>120/80) but appears stable without evidence of hypertensive emergency or urgency. The patient was counseled about the risks of hypertension and urged to pursue outpatient monitoring and therapy within a week with their primary care physician. Departure Diagnosis: Primary Impression: Chest pain Chest pain type: unspecified Qualified Codes: R07.9 - Chest pain, unspecified Additional Impression: Abdominal bruit Condition: Stable REBECA HERNANDEZ MD Mar 15, 2019 18:05
[2019-03-15 18:31] VITALS: BP 133/82; PULSE 81; RESP 18
== END 2019-03-15 18:32 | disposition home or self-care (01) ==
LOC: E/R 16:08
DX: R07.9 Chest pain, unspecified (principal); R09.89 Other specified symptoms and signs involving the circulatory and respiratory systems
CPT/HCPCS: 36415; 71045; 80048; 84484; 85025; 93005; 96374; 99285; J1885